=== PATIENT | female | born 1980 | race Asian ===

== ENCOUNTER 2016-10-27 21:13 | Emergency (ER) | payer MEDICAID ==
[2016-10-27 21:29] VITALS: RESP 16
[2016-10-27] MEDS ORDERED: NS 1,000 ML IV ONE ×2 (22:03→23:00)
[2016-10-27] MEDS ORDERED: DEXAMETHASONE 10 MG/ML VIAL IVP ONE (22:03)
[2016-10-27] MEDS ORDERED: KETOROLAC 30 MG/1 ML SDV IVP ONE (22:03)
[2016-10-27] MEDS ORDERED: METOCLOPRAMIDE 10 MG/2 ML VIAL IVP ONE (22:03)
--- NOTE | 2016-10-27 22:03 | EDPHY ---
H & P Stated Complaint: 12/06 GUDINO, diarrhea, N/V, bilateral face pain, sore throat since yesterday. - Personal History Current Tetanus Diphtheria and Acellular Pertussis (TDAP): Yes Tetanus Vaccine Date: 2010 - Medical/Surgical History Hx Asthma: No Hx Chronic Respiratory Disease: No Hx Diabetes: No Hx Cardiac Disease: No Hx Renal Disease: No Hx Cirrhosis: No Hx Alcoholism: No Hx HIV/AIDS: No Hx Splenectomy or Spleen Trauma: No Other PMH: PMH: migraines. 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 This was accompanied also by a sore throat. She developed diarrhea and has had multiple bouts of watery diarrhea with no blood. This morning the patient also noticed significant discomfort in her bilateral jaws, a sore throat, and feeling that her anterior neck was swollen. She woke up last night sweating, but has no documented fever. Patient reports she has a history of migraine headaches which are somewhat similar to today's headache. Patient's headache is bilateral bitemporal, worse with light cysts, feels better when she is holding her head. She has vomited once with the headache. No head trauma. Last imaging study of the head was many years ago. She typically uses Excedrin for her migraine pain. Headache is worse with lights. Patient denies chest pain, shortness of breath, palpitations, lightheadedness. REVIEW OF SYSTEMS: Aside from elements discussed in the HPI, a comprehensive 10-point review of systems was reviewed and is negative. PAST MEDICAL HISTORY: Migraines. IUD in place. SOCIAL HISTORY: Patient is originally from [facility]. Unclear if she has had her Haemophilus influenzae immunization. She did receive influenza vaccination this year. VITAL SIGNS Reviewed by me. GENERAL: Somewhat uncomfortable appearing female. She is holding her head. Reports her headache is better if she onto the top of her head and presses. She is afebrile here. HEENT: Atraumatic. Eyes: No icterus, no injection. PERRL, EOMI. Tenderness to percussion over the maxillary sinuses bilaterally. Mouth: moist mucous membranes. No erythema or lesions. No trismus. Mild posterior erythema. No tonsillar enlargement or exudates. No sublingual fullness. Neck: supple with no adenopathy. No meningismus. Negative Kernig's. Negative Brudzinski's. LUNGS: Clear to auscultation bilaterally, no wheezes, rhonchi or rales. CARDIAC: Regular rate and rhythm, no rubs, murmurs or gallops. ABDOMEN: Soft, nontender, nondistended, bowel sounds normal. BACK: No CVA tenderness. EXTREMITIES: No trauma. No edema. Range of motion is normal throughout. NEURO: Alert and oriented, motor strength 5/5 throughout. Sensation intact to light touch throughout. Normal gait. SKIN: Warm and dry, no rash. PSYCHIATRIC: Normal mentation, no confusion, no somnolence, no agitation. ( Tanvi Ritter) Constitutional: Initial Vital Signs Temperature (C) 36.9 C 10/27/16 21:26 Heart Rate 85 10/27/16 21:26 Respiratory Rate 16 10/27/16 21:26 Blood Pressure 136/104 H 10/27/16 21:26 O2 Sat (%) 97 10/27/16 21:26 O2 Delivery Mode Room Air Allergies/Adverse Reactions: Penicillins Allergy (Verified 10/27/16 21:25) Home Medications: Medication Instructions Recorded NO HOME MEDICATIONS 11/15/10 Medical Decision Making - Diagnostics Imaging Results: Imaging Impressions Head CT 10/27/16 23:06 Impression: Normal brain. No intracranial hemorrhage or mass. Findings discussed with Emergency Department physician, Kole Wright MD at 10/27/2016 23:37. ED Course/Re-evaluation: Patient had IV established received a L of normal saline. She received Reglan, Decadron, Toradol, and Benadryl for her headache. Patient's rapid strep was negative. Laboratory evaluation is largely unremarkable. [place] [id number]. On re-evaluation at 11:00 p.m., the patient reports her headache is significantly improved. She tells me she usually has facial pain with her migraine headaches. She has had no congestion, runny nose, or upper respiratory infection symptoms. Occasional cough. No further diarrhea while in the emergency department. No vomiting. Patient will receive Dilaudid 0.5 mg. Imaging studies were ordered as well including head CT and soft tissue CT of the patient's neck. She continues to report only severe headache but feeling at her neck is swollen and that she has been choked or stangled. Care was assumed by Dr. Kole Wright at 11:20 p.m.. (Tanvi Ritter) I was asked to follow up this patient's CT scans. The patient CT head and neck scan are unremarkable for abnormality except for enlarged thyroid gland. CT scan of the head without IV contrast The results of the study are negative for acute intracranial abnormality The study was read by Dr. Macdonald I viewed the images myself on the PACS system. CT soft tissue neck with IV contrast shows enlarged thyroid gland, otherwise unremarkable. [id number]: At this time this patient is sleeping. She is resting comfortably. She tells me her headache is 1/10 almost resolved. She would like to go home. She appears well nontoxic and has a normal neurological exam. I do recommend she follows up with the primary care doctor about her large thyroid and get formal thyroid testing she understands. I referred her to primary care outpatient as well as put on her discharge paperwork that she has enlarged thyroid gland on her CT scan today this unlikely to be causing her symptoms. Do recommend follow-up thyroid testing. She is comfortable this plan. Family at bedside is comfortable this plan. (Kole Wright) Differential Diagnosis: After history was obtained, and the physical exam performed, a differential for headache was considered including, but not limited to, subarachnoid hemorrhage, migraine headache, tension headache and infectious causes such as meningitis, sinusitis, encephalitis. (Tanvi Ritter) - Data Points Laboratory Results: Laboratory Results 10/27/16 22:06 10/27/16 22:06 10/27/16 10/27/16 10/27/16 Unknown 22:06 22:06 WBC RBC Hgb Hct MCV MCH MCHC RDW Plt Count MPV Neut % (Auto) Lymph % (Auto) [place] % (Auto) Eos % (Auto) Baso % (Auto) Nucleat RBC Rel Count Absolute Neuts (auto) Absolute Lymphs (auto) Absolute Monos (auto) Absolute Eos (auto) Absolute Basos (auto) Absolute Nucleated RBC Immature Gran % Immature Gran # Sodium 136 mEq/L mEq/L (134-144) Potassium 4.0 mEq/L mEq/L (3.5-5.2) Chloride 102 mEq/L mEq/L (97-110) Carbon Dioxide 21 mEq/l L mEq/l (22-31) Anion Gap 13 mEq/L mEq/L (8-16) BUN 8 mg/dL mg/dL (7-23) Creatinine 0.5 mg/dL L mg/dL (0.6-1.0) Estimated GFR > 60 Glucose 94 mg/dL mg/dL (70-100) Calcium 8.7 mg/dL mg/dL (8.5-10.4) Beta HCG, Qual NEGATIVE Group A Strep Screen Group A Strep DNA Pending 10/27/16 10/27/16 22:06 22:00 WBC 11.27 10^3/uL H 10^3/uL (3.80-9.50) RBC 4.38 10^6/uL 10^6/uL (4.18-5.33) Hgb 9.6 g/dL L g/dL (12.6-16.3) Hct 31.0 % L % (38.0-47.0) MCV 70.8 fL L fL (81.5-99.8) MCH 21.9 pg L pg (27.9-34.1) MCHC 31.0 g/dL L g/dL (32.4-36.7) RDW 16.5 % H % (11.5-15.2) Plt Count 273 10^3/uL 10^3/uL (150-400) MPV 11.2 fL fL (8.7-11.7) Neut % (Auto) 76.0 % H % (39.3-74.2) Lymph % (Auto) 15.3 % % (15.0-45.0) [place] % (Auto) 6.3 % % (4.5-13.0) Eos % (Auto) 1.0 % % (0.6-7.6) Baso % (Auto) 0.7 % % (0.3-1.7) Nucleat RBC Rel Count 0.0 % % (0.0-0.2) Absolute Neuts (auto) 8.57 10^3/uL H 10^3/uL (1.70-6.50) Absolute Lymphs (auto) 1.72 10^3/uL 10^3/uL (1.00-3.00) Absolute Monos (auto) 0.71 10^3/uL 10^3/uL (0.30-0.80) Absolute Eos (auto) 0.11 10^3/uL 10^3/uL (0.03-0.40) Absolute Basos (auto) 0.08 10^3/uL 10^3/uL (0.02-0.10) Absolute Nucleated RBC 0.00 10^3/uL 10^3/uL (0-0.01) Immature Gran % 0.7 % % (0.0-1.1) Immature Gran # 0.08 10^3/uL 10^3/uL (0.00-0.10) Sodium Potassium Chloride Carbon Dioxide Anion Gap BUN Creatinine Estimated GFR Glucose Calcium Beta HCG, Qual Group A Strep Screen NEGATIVE (NEGATIVE) Group A Strep DNA Medications Given: Discontinued Medications Dexamethasone (Decadron Injection) 10 mg IVP EDNOW ONE Stop: 10/27/16 22:04 Last Admin: 10/27/16 22:18 Dose: 10 mg Diphenhydramine HCl (Benadryl Injection) 25 mg IVP EDNOW ONE Stop: 10/27/16 22:04 Last Admin: 10/27/16 22:18 Dose: 25 mg Hydromorphone HCl (Dilaudid) 0.5 mg IVP EDNOW ONE Stop: 10/27/16 23:01 Last Admin: 10/27/16 23:23 Dose: 0.5 mg Sodium Chloride (Ns) 1,000 mls @ 0 mls/hr IV ONCE ONE; Wide Open PRN Reason: Protocol Stop: 10/27/16 22:04 Last Admin: 10/27/16 22:05 Dose: 1,000 mls Sodium Chloride (Ns) 1,000 mls @ 0 mls/hr IV ONCE ONE; Wide Open PRN Reason: Protocol Stop: 10/27/16 23:01 Last Admin: 10/27/16 23:25 Dose: Not Given Ketorolac Tromethamine (Toradol) 30 mg IVP EDNOW ONE Stop: 10/27/16 22:04 Last Admin: 10/27/16 22:18 Dose: 30 mg Metoclopramide HCl (Reglan Injection) 10 mg IVP EDNOW ONE Stop: 10/27/16 22:04 Last Admin: 10/27/16 22:19 Dose: 10 mg Departure - Departure Disposition: Home, Routine, Self-Care Clinical Impression: Headache Qualifiers: Headache type: unspecified Headache chronicity pattern: acute headache Intractability: not intractable Qualified Code(s): R51 - Headache Instructions: General Headache (ED) Additional Instructions: 1. Return to the emergency room if develops worsening symptoms includes headache , neck pain, chest pain, fever or you do not feel well. 2. Rest tomorrow. 3. Check her thyroid with her primary care doctor this needs to be followed up on. You need thyroid testing. 4. Your CT scan of your neck showed an enlarged thyroid. Referrals: NONE *PRIMARY CARE P,. [Primary Care Provider] - As per Instructions Ida Victoria MD [[facility] [place] Primary Care Provider] - As per Instructions
[2016-10-27 22:17] LABS: % IMMATURE GRANULYOCYTES 0.7 % (0.0-1.1); ABSOLUTE IMMATURE GRANULOCYTES 0.08 10^3/uL (0.00-0.10); ADD DIFF? NO; ADD MORPH? NO; ADD SCAN? NO; ATYPICAL LYMPHOCYTE FLAG 10 (0-99); FRAGMENT RBC FLAG 20 (0-99); HEMOGLOBIN 9.6 g/dL (12.6-16.3); LEFT SHIFT FLG 0 (0-99); LIPEMIA HEMOLYSIS FLAG 80 (0-99); MEAN CELL HEMOGLOBIN 21.9 pg (27.9-34.1); MEAN CELL VOLUME 70.8 fL (81.5-99.8); MEAN PLATELET VOLUME 11.2 fL (8.7-11.7); PLATELET CLUMPS FLAG 0 (0-99); PLATELET COUNT 273 10^3/uL (150-400); RED BLOOD CELL COUNT 4.38 10^6/uL (4.18-5.33); RED CELL DISTRIBUTION WIDTH 16.5 % (11.5-15.2)
[2016-10-27 22:27] LABS: ANION GAP 13 mEq/L (8-16); CALCIUM 8.7 mg/dL (8.5-10.4); CARBON DIOXIDE 21 mEq/l (22-31); CHLORIDE 102 mEq/L (97-110); CREATININE 0.5 mg/dL (0.6-1.0); GLOMERULAR FILTRATION RATE > 60; GLUCOSE 94 mg/dL (70-100); SODIUM 136 mEq/L (134-144)
[2016-10-27] MEDS ORDERED: HYDROmorphONE/DILAUDID 1 MG/ML SYR IVP ONE (23:00)
[2016-10-27] MEDS ORDERED: IOPAMIDOL (ISOVUE-300) 100 ML BTL ONE (23:38)
[2016-10-28 00:41] VITALS: BP 135/98; PULSE 86; TEMP 99; O2SAT 93
== END 2016-10-28 00:41 | disposition home or self-care (01) ==
LOC: CED 21:13
DX: R51 Headache (principal); E86.9 Volume depletion, unspecified
CPT/HCPCS: 70450-PO; 70491-PO; 80048-PO; 84703-PO; 85025-PO; 87880-PO; 96374; J1170; J1200; J1885; J2765; Q9967